=== PATIENT | female | born 2005 | race Two or more races ===

== ENCOUNTER 2023-05-14 17:40 | Outpatient (CLI) | payer OTHER ==
--- NOTE | 2023-05-15 14:57 | XRAY Report ---
PROCEDURE: Cervical Spine 2 View INDICATIONS: STRAIN OF MUSCLE, FASCIA AND TENDON AT NECK LEVEL TECHNIQUE: 3 view(s) of the cervical spine were acquired. COMPARISON: None. FINDINGS: Bones: No fractures or dislocations to the C7-T1 level. There is slight reversal of cervical curvatu re with apex at C5-6. The lateral masses of C1 appear intact on the odontoid view. No suspicious bon y lesions. Soft tissues: No prevertebral soft tissue swelling. IMPRESSION: Mild reversal cervical curvature possibly positional. Reviewed by: Elba Boyer MD on 05/15/2023 2:56 PM PDT Approved by: Elba Boyer MD on 05/15/2023 2:56 PM PDT Station ID: [id number]
== END 2023-05-14 17:41 | disposition home or self-care (01) ==
LOC: DI 17:40
PROVIDERS: ATTEND Family Medicine
DX: S16.1XXA Strain of muscle, fascia and tendon at neck level, initial encounter (principal)